=== PATIENT | female | born 2000 | race Caucasian/White ===

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

== ENCOUNTER 2021-01-17 16:32 | Emergency (ER) | payer MEDICAID ==
[~2021-01-17] VITALS: Ht 172 cm; Wt 99.7 kg
[~2021-01-17 16:32] MED LIST changes: -DCS100C PO; +DOCU-239 PO
[2021-01-17 16:51] LABS: CLARITY,URINE CLOUDY; COLOR,URINE DARK YELLOW; GLUCOSE, URINE (UA) NEGATIVE (NEGATIVE); KETONES,URINE 2+ (NEGATIVE); LEUKOCYTE ESTERASE ,URINE 2+ (NEGATIVE); NITRITE,URINE NEGATIVE (NEGATIVE); PROTEIN,URINE 1+ (NEGATIVE)
--- NOTE | 2021-01-17 16:59 | ED General ---
General Chief Complaint: Fever-Adult/Adol Stated Complaint: L SIDE PAIN / FEVER / BRAIN FOG Nursing Triage Note: PT PRESENTS TO ED VIA POV FROM HOME WITH COMPLAINTS OF FEVER X 2 DAYS, L MID ABDOMINAL PAIN AND NAUSEA X 3 DAYS. PT STATES SHE ALSO FEELS LIGHTHEADED. Source of Information: Patient Exam Limitations: No Limitations History of Present Illness Date Seen by Provider: Jan 17, 2021 Time Seen by Provider: 16:59 Initial Comments This is a well-appearing 20-year-old female who presents to the ER with complaints of left upper quadrant abdominal/flank pain with nausea and vomiting for the past 3 days. Pain is sharp "like lightening" and intermittent. Currently has no pain at this time. Denies need for antiemetic but notes she has had nausea for the past couple days. States she had temperature of 102.5 at home. Garsia s been taking Tylenol and Ibuprofen for pain/fever. Poor appetite today. Has burning with urination and frequency. LMP 12/27/20. No cough, shortness of breath, emesis, diarrhea. Had both COVID vaccines. Allergies and Home Medications Allergies Coded Allergies: No Known Drug Allergies (Unverified , 12/22/19) Patient Home Medication List Home Medication List Reviewed: Yes Benzocaine/Menthol (Dermoplast Pain Relieving [place]) 78 Gm Aerosol, 56 ML TP UD PRN for PAIN- SEE INSTRUCTIONS Prescribed by: CHERI GARNER on 12/23/19721 Calcium Carbonate (Tums X-Str) 300 Mg Tab.chew, 300 MG PO PRN, (Reported) Entered as Reported by: SUYAPA LUCIO on 11/24/192012 Ciprofloxacin HCl (Ciprofloxacin HCl) 500 Mg Tablet, 500 MG PO BID Prescribed by: RAFAEL CHATMAN on 01/17/211805 Docusate Sodium (Dok) 100 Mg Capsule, 100 MG PO BID Prescribed by: CHERI GARNER on 12/23/19721 Ferrous Sulfate (Ferrous Sulfate) 325 Mg Tablet, 325 MG PO DAILY Prescribed by: CHERI GARNER on 12/23/19721 Hydrocodone/Acetaminophen (Hydrocodone-Acetamin 5-325 mg) 1 Each Tablet, 1 TAB PO Q4H PRN for PAIN-MODERATE (5-7) Prescribed by: CHERI GARNER on 12/23/19721 Ibuprofen (Ibu) 600 Mg Tablet, 600 MG PO Q6HR Prescribed by: CHERI GARNER on 12/23/19 0722 Review of Systems Review of Systems Constitutional: see HPI EENTM: no symptoms reported Respiratory: no symptoms reported Cardiovascular: no symptoms reported Gastrointestinal: see HPI Genitourinary: see HPI : No Musculoskeletal: see HPI Skin: no symptoms reported Psychiatric/Neurological: No Symptoms Reported Hematologic/Lymphatic: No Symptoms Reported Immunological/Allergic: no symptoms reported Past Shcnysx-Wlhvue-Yffprh Hx Patient Social History Tobacco Use?: No Substance use?: No Alcohol Use?: No Pt feels they are or have been: No Immunizations Up To Date Tetanus Booster (TDap): Less than 5yrs PED Vaccines UTD: Yes First/Initial COVID19 Vaccinat: AUGUST Second COVID19 Vaccination Efraín: SEPTEMBER 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: [employer] Seasonal Allergies Seasonal Allergies: No Past Medical History Surgery/Hospitalization HX: SX: PACEMAKER, GALLBLADDER, TONSILS Surgeries: Yes Adenoidectomy, Pacemaker, Tonsillectomy Respiratory: No Asthma Cardiac: Yes Irregular Heartbeat Neurological: No Seizure Disorder 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 No Pertinent Family Hx Physical Exam Vital Signs Vital Signs - First Documented 01/17/21 16:47 Temp 37.4 Pulse 122 Resp 16 B/P (MAP) 143/87 (105) Pulse Ox 100 O2 Delivery Room Air Capillary Refill : Less Than 3 Seconds Height, Weight, BMI Height: 5'8" Weight: 190lbs. oz. 86.595541fg; 33.00 BMI Method:Stated General Appearance: No Apparent Distress, WD/WN Eyes: Bilateral Eye Normal Inspection, Bilateral Eye PERRL, Bilateral Eye EOMI HEENT: PERRL/EOMI, Normal ENT Inspection, Pharynx Normal, Moist Mucous Membranes Neck: Full Range of Motion, Normal Inspection, Supple Respiratory: Lungs Clear, Normal Breath Sounds, No Accessory Muscle Use Cardiovascular: Regular Rate, Rhythm, No Edema Gastrointestinal: Normal Bowel Sounds, No Organomegaly, Soft; No Distended, No Hepatomegaly, No Splenomegaly; Tenderness (LUQ. ) Back: CVA Tenderness (L) Extremity: Normal Capillary Refill, Normal Inspection, Normal Range of Motion Neurologic/Psychiatric: Alert, Oriented x3, No Motor/Sensory Deficits, Normal Mood/Affect Skin: Normal Color, Warm/Dry Progress/Results/Core Measures Suspected Sepsis SIRS Temperature: Pulse: 122 Respiratory Rate: 16 Laboratory Tests 01/17/21 16:57: White Blood Count 8.8 Blood Pressure 143 /87 Mean: 105 Laboratory Tests 01/17/21 16:57: Creatinine 0.76, Platelet Count 230, Total Bilirubin 2.3H Results/Orders Lab Results Laboratory Tests Test 01/17/21 16:44 01/17/21 16:57 Range/Units Urine Color DARK YELLOW Urine Clarity CLOUDY Urine pH 6.0 5-9 Urine Specific [place] 1.020 1.016-1.022 Urine Protein 1+ H NEGATIVE Urine Glucose (UA) NEGATIVE NEGATIVE Urine Ketones 2+ H NEGATIVE Urine Nitrite NEGATIVE NEGATIVE Urine Bilirubin 1+ H NEGATIVE Urine Urobilinogen 4.0 < = 1.0 MG/DL Urine Leukocyte Esterase 2+ H NEGATIVE Urine RBC (Auto) 3+ H NEGATIVE Urine RBC 0-2 /HPF Urine WBC 50-100 H /HPF Urine Squamous Epithelial Cells 10-25 H /HPF Urine Renal Epithelial Cells NONE /HPF Urine Crystals NONE /LPF Urine Bacteria MODERATE H /HPF Urine Casts NONE /LPF Urine Mucus MODERATE H /LPF Urine Culture Indicated YES White Blood Count 8.8 4.3-11.0 10^3/uL Red Blood Count 4.86 3.80-5.11 10^6/uL Hemoglobin 13.2 11.5-16.0 g/dL Hematocrit 39 35-52 % Mean Corpuscular Volume 81 80-99 fL Mean Corpuscular Hemoglobin 27 25-34 pg Mean Corpuscular Hemoglobin Concent 34 32-36 g/dL Red Cell Distribution Width 13.8 10.0-14.5 % Platelet Count 230 130-400 10^3/uL Mean Platelet Volume 11.2 9.0-12.2 fL Immature Granulocyte % (Auto) 0 % Neutrophils (%) (Auto) 73 42-75 % Lymphocytes (%) (Auto) 16 12-44 % Monocytes (%) (Auto) 11 0-12 % Eosinophils (%) (Auto) 0 0-10 % Basophils (%) (Auto) 0 0-10 % Neutrophils # (Auto) 6.5 1.8-7.8 10^3/uL Lymphocytes # (Auto) 1.4 1.0-4.0 10^3/uL Monocytes # (Auto) 0.9 0.0-1.0 10^3/uL Eosinophils # (Auto) 0.0 0.0-0.3 10^3/uL Basophils # (Auto) 0.0 0.0-0.1 10^3/uL Immature Granulocyte # (Auto) 0.0 0.0-0.1 10^3/uL Sodium Level 136 135-145 MMOL/L Potassium Level 3.2 L 3.6-5.0 MMOL/L Chloride Level 103 98-107 MMOL/L Carbon Dioxide Level 19 L 21-32 MMOL/L Anion Gap 14 5-14 MMOL/L Blood Urea Nitrogen 11 7-18 MG/DL Creatinine 0.76 0.60-1.30 MG/DL Estimat Glomerular Filtration Rate 98 BUN/Creatinine Ratio 14 Glucose Level 95 70-105 MG/DL Calcium Level 9.4 8.5-10.1 MG/DL Corrected Calcium 9.2 8.5-10.1 MG/DL Total Bilirubin 2.3 H 0.1-1.0 MG/DL Aspartate Amino Transf (AST/SGOT) 22 5-34 U/L Alanine Aminotransferase (ALT/SGPT) 25 0-55 U/L Alkaline Phosphatase 123 40-136 U/L Total Protein 7.2 6.4-8.2 GM/DL Albumin 4.3 3.2-4.5 GM/DL Lipase 9 8-78 U/L Monoscreen NEGATIVE NEGATIVE Micro Results Microbiology 01/17/21 Urine Culture - Preliminary, Resulted Gram Negative Gianluca Gram Pos Mixed Bacterial Edilia My Orders Orders - RAFAEL CHATMAN STORAGE BATTERY INSPECTOR Ua Culture If Indicated (01/17/21 16:36) Urine Bedside (01/17/21 16:39) Urine Culture (01/17/21 16:44) Cbc With Automated Diff (01/17/21 17:15) Comprehensive Metabolic Panel (01/17/21 17:15) Abdomen/Kub 1view (01/17/21 17:15) Monotest (01/17/21 17:15) Ns Iv 1000 Ml (Sodium Chloride 0.9%) (01/17/21 17:45) Lipase (01/17/21 17:44) Ceftriaxone (Rocephin) (01/17/21 18:15) Medications Given in ED Vital Signs/I&O 01/17/21 01/17/21 16:47 18:32 Temp 37.4 Pulse 122 96 Resp 16 18 B/P (MAP) 143/87 (105) 116/78 Pulse Ox 100 98 O2 Delivery Room Air Capillary Refill : Less Than 3 Seconds Blood Pressure Mean: 105 Progress Note : Progress Note Orders placed for UA and renal stone study d/t colicky nature of pain. Will obtain basic labs and add Barron. Normal saline 1 liter ordered. Labs and imaging reviewed. Based on symptoms likely has acute pyelonephritis. Will give 1gm Rocephin in ED and rx Ciprofloxacin 500mg PO BID x 7 days. Culture pending. Discharge POC reviewed and she is agreeable with plan. Diagnostic Imaging Diagonstic Imaging: Xray Plain Films/CT/US/NM/MRI: abdomen Comments [facility] [place] [place] NAME: ROLANDALOREN APODACA [facility] REC#: [id number] PT STATUS: REG ER : 2000 PHYSICIAN: RAFAEL CHATMAN STORAGE BATTERY INSPECTOR ADMIT DATE: 01/17/21/ER Signed Date of Exam:01/17/21 ABDOMEN/KUB 1VIEW EXAM: ABDOMEN/KUB 1VIEW INDICATION: Left flank pain. Fever. Nausea. COMPARISON: None. FINDINGS: No radiopaque densities suspicious for renal stone. IUD. Cholecystectomy clips. Nonspecific bowel gas pattern. No acute osseous findings. IMPRESSION: No acute radiographic findings in the abdomen. No radiopaque densities suspicious for renal stone. Dictated by: Dictated on workstation # [id number] Dict: 01/17/21 1732 Trans: 01/17/21 1758 [id number] Interpreted by: CHAPO STRICKLAND MD Electronically signed by: CHAPO STRICKLAND MD 01/17/211757 Departure Impression Primary Impression: Pyelonephritis Disposition: 01 HOME, SELF-CARE Condition: Improved Departure-Patient Inst. Decision time for Depature: 18:05 Referrals: [facility] (PCP/Family) Primary Care Physician Patient Instructions: Urinary Tract Infection, Adult ED Add. Discharge Instructions: Plan: 1. Drink plenty of fluids to keep your urine a pale yellow. 2. Continue Tylenol or Ibuprofen as needed for pain/fever per package. 3. Take antibiotics as directed and complete full course even if you begin to feel better. 4. Follow up with your doctor for persistent symptoms. 5. Return for any new, concerning, or worsening symptoms. All discharge instructions reviewed with patient and/or family. Voiced understanding. Scripts Ciprofloxacin HCl (Ciprofloxacin HCl) 500 Mg Tablet 500 MG PO BID for 7 Days, #14 TAB 0 Refills Prov: RAFAEL CHATMAN APRN 01/17/21 RAFAEL CHATMAN APRN Jan 17, 2021 16:59
[2021-01-17 17:01] LABS: BACTERIA,URINE MODERATE /HPF; RBC,URINE 0-2 /HPF; WBC,URINE 50-100 /HPF
[2021-01-17 17:02] LABS: BILIRUBIN,URINE 1+ (NEGATIVE)
[2021-01-17 17:20] LABS: BASOPHILS % (AUTO) 0 % (0-10); EOSINOPHILS % (AUTO) 0 % (0-10); HEMATOCRIT 39 % (35-52); HEMOGLOBIN 13.2 g/dL (11.5-16.0); LYMPHOCYTES # (AUTO) 1.4 10^3/uL (1.0-4.0); LYMPHOCYTES % (AUTO) 16 % (12-44); MEAN CORPUSCULAR HEMOGLOBIN 27 pg (25-34); MEAN CORPUSCULAR HGB CONC 34 g/dL (32-36); MEAN CORPUSCULAR VOLUME 81 fL (80-99); MEAN PLATELET VOLUME 11.2 fL (9.0-12.2); MONOCYTES # (AUTO) 0.9 10^3/uL (0.0-1.0); MONOCYTES % (AUTO) 11 % (0-12); NEUTROPHILS # (AUTO) 6.5 10^3/uL (1.8-7.8); NEUTROPHILS % (AUTO) 73 % (42-75); PLATELET COUNT 230 10^3/uL (130-400); WHITE BLOOD COUNT 8.8 10^3/uL (4.3-11.0)
[2021-01-17 17:25] LABS: ALBUMIN 4.3 GM/DL (3.2-4.5); POTASSIUM 3.2 MMOL/L (3.6-5.0)
[2021-01-17 17:26] LABS: CALCIUM 9.4 MG/DL (8.5-10.1)
[2021-01-17 17:27] LABS: TOTAL PROTEIN 7.2 GM/DL (6.4-8.2)
[2021-01-17 17:29] LABS: BILIRUBIN,TOTAL 2.3 MG/DL (0.1-1.0)
[2021-01-17 17:31] LABS: CREATININE SERUM 0.76 MG/DL (0.60-1.30)
--- NOTE | 2021-01-17 17:37 | Diagnostic Imaging Report ---
EXAM: ABDOMEN/KUB 1VIEW INDICATION: Left flank pain. Fever. Nausea. COMPARISON: None. FINDINGS: No radiopaque densities suspicious for renal stone. IUD. Cholecystectomy clips. Nonspecific bowel gas pattern. No acute osseous findings. IMPRESSION: No acute radiographic findings in the abdomen. No radiopaque densities suspicious for renal stone. Dictated by: Dictated on workstation # [id number]
[2021-01-17] MEDS ORDERED: NS IV 1000 ML 1,000 ML IV ONE (17:45)
[2021-01-17] MEDS ORDERED: CIPR500T5 PO (18:06)
[2021-01-17] MEDS ORDERED: cefTRIAXone 1,000 MG in WATER (STERILE) FOR INJECTION 10 ML IV ONE (18:15)
[2021-01-17 18:32] VITALS: BP 116/78
== END 2021-01-17 18:32 | disposition home or self-care (01) ==
LOC: EDUNIT# 16:32 → ER 16:35
DX: N12 Tubulo-interstitial nephritis, not specified as acute or chronic (principal); J45.909 Unspecified asthma, uncomplicated
CPT/HCPCS: 36415; 74018; 80053; 81000; 83690; 84703; 85025; 86308; 87077; 87088; 87186